=== PATIENT | male | born 1970 | race Caucasian/White ===

== ENCOUNTER 2019-04-11 06:33 | Emergency (ER) | payer SELFPAY ==
[2019-04-11 07:32] VITALS: BP 128/85; PULSE 98; TEMP 98.9; BMI 27.8
--- NOTE | 2019-04-11 08:28 | PDOC ---
History of Present Illness - General History Source: Patient Exam Limitations: Clinical Condition - History of Present Illness Initial Comments: 04/11/19 08:33 Patient with no significant past medical history and uncircumcised present with complaint of 5-day history of redness and irritation to glans of penis which is worse when he retract the foreskin. Denies penile discharge, testicular pain or swelling. Denies any other symptoms. Denies history of diabetes. Patient has not taken anything for symptoms Timing/Duration: reports: other (5 days) Location: reports: genitalia <Wade Victoria - Last Filed: 04/11/19 08:42> <Harrison Dhillon - Last Filed: 04/11/19 08:49> - General Chief Complaint: Redness To Affected Area Stated Complaint: REDNESS,GROIN Time Seen by Provider: 04/11/19 08:10 Past History - Past Medical History COPD: No - Immunization History Immunization Up to Date: Yes - Psycho Social/Smoking Cessation Hx Smoking History: Never smoked Hx Alcohol Use: No Drug/Substance Use Hx: No <Wade Victoria - Last Filed: 04/11/19 08:42> <Harrison Dhillon - Last Filed: 04/11/19 08:49> - Past Medical History Allergies/Adverse Reactions: Allergies Allergy/AdvReac Type Severity Reaction Status Date / Time No Known Allergies Allergy Verified 04/11/19 07:27 Home Medications: Ambulatory Orders Fluconazole [Diflucan] 150 mg PO ONCE #1 tablet 04/11/19 Ketoconazole 2% Cream [Nizoral 2% Cream -] 1 applic TP BID 10 Days #1 cream 09/21 Review of Systems - Review of Systems Able to Perform ROS?: Yes Is the patient limited [place] Citizen proficient: No Constitutional: No: Chills, Fever, Malaise HEENTM: No: Symptoms Reported, See HPI, Eye Pain, Blurred Vision, Tearing, Recent change in vision, Double Vision, Cataracts, Ear Pain, Ocular Prothesis, Ear Discharge, Nose Pain, Nose Congestion, Tinnitus, Nose Bleeding, Hearing Loss , Throat Pain, Throat Swelling, Mouth Pain, Dental Problems, Difficulty Swallowing, Mouth Swelling, Other Respiratory: No: Symptoms reported, See HPI, Cough, Orthopnea, Shortness of Breath, SOB with Exertion, SOB at Rest, Stridor, Wheezing, Productive cough, Hemoptysis, Other Cardiac (ROS): No: Symptoms Reported, See HPI, Chest Pain, Edema, Irregular Heart Rate, Lightheadedness, Palpitations, Syncope, Chest Tightness, Other ABD/GI: No: Symptoms Reported, Nausea, Vomiting, Abdominal cramping : Yes: Symptoms Reported, See HPI, Lesions (redness to gland of penis). No: Dysuria, Discharge, Frequency, Flank Pain, Hematuria, Urgency, Testicular Mass, Testicular Swelling, Testicular Pain Musculoskeletal: No: Symptoms Reported All Other Systems: Reviewed and Negative <Wade Victoria - Last Filed: 04/11/19 08:42> *Physical Exam - Vital Signs Last Vital Signs Temp Pulse Resp BP Pulse Ox 98.9 F 98 H 16 128/85 100 04/11/19 07:10 04/11/19 07:10 04/11/19 07:10 04/11/19 07:10 04/11/19 07:10 - Physical Exam General Appearance: Yes: Nourished, Appropriately Dressed. No: Apparent Distress HEENT: positive: Normal ENT Inspection Respiratory/Chest: negative: Respiratory Distress, Accessory Muscle Use Cardiovascular: positive: Regular Rhythm, Regular Rate Gastrointestinal/Abdominal: positive: Normal Bowel Sounds, Flat. negative: Tender, Distended, Guarding Male Genitalia: positive: other (moderate diffused erythema to gland of penis on uncircumsized male. no discharge from site. no open wounds). negative: discharge, testicular tenderness, testicular mass, epididymus tender Musculoskeletal: negative: CVA Tenderness Extremity: positive: Normal Inspection Integumentary: positive: Normal Color Neurologic: positive: Fully Oriented, Alert, Normal Response <Wade Victoria - Last Filed: 04/11/19 08:42> - Vital Signs Last Vital Signs Temp Pulse Resp BP Pulse Ox 98.9 F 98 H 16 128/85 100 04/11/19 07:10 04/11/19 07:10 04/11/19 07:10 04/11/19 07:10 04/11/19 07:10 <Harrison Dhillon - Last Filed: 04/11/19 08:49> ED Treatment Course - ADDITIONAL ORDERS Additional order review: Laboratory Results 04/11/19 08:38 POC Glucometer 105 04/11/19 08:38 POC Glucometer 105 <JacquieHarrison dubon - Last Filed: 04/11/19 08:49> Medical Decision Making - Medical Decision Making 04/11/19 08:34 Patient with no significant past medical history and uncircumcised present with complaint of 5-day history of redness and irritation to glans of penis which is worse when he retract the foreskin. Denies penile discharge, testicular pain or swelling. Denies any other symptoms. Denies history of diabetes. Patient has not taken anything for symptoms Exam was significant for diffuse erythema to glans of penis of uncircumcised male with no open wound or discharge. No testicular swelling or tenderness. Patient symptoms likely Lindsay balanitis from moisture from uncircumcised penis. Patient stable for management on Diflucan 1 tab and topical antifungal with urology follow-up. Fingerstick done to rule out diabetes 04/11/19 08:42 Fingerstick is 106. Patient stable for discharge <Wade Victoria - Last Filed: 04/11/19 08:42> - Medical Decision Making 04/11/19 08:49 I reviewed the case of the mid-level practitioner and was available for consultation while in the emergency department <Harrison Dhillon - Last Filed: 04/11/19 08:49> Discharge - Discharge Information Problems reviewed: Yes - Admission No <Wdae Victoria - Last Filed: 04/11/19 08:42> <Harrison Dhillon - Last Filed: 04/11/19 08:49> - Discharge Information Clinical Impression/Diagnosis: Candidal balanitis Condition: Stable Disposition: HOME - Additional Discharge Information Prescriptions: Fluconazole [Diflucan] 150 mg PO ONCE #1 tablet Ketoconazole 2% Cream [Nizoral 2% Cream -] 1 applic TP BID 10 Days #1 cream - Follow up/Referral Referrals: Song Moser MD [Staff Physician] - - Patient Discharge Instructions Patient Printed Discharge Instructions: DI for Balanitis Additional Instructions: Your symptoms likely caused by fungal infection. Take prescribed medication as prescribed. Follow-up referred to urology in 3 to 5 days for follow-up
== END 2019-04-11 08:50 | disposition home or self-care (01) ==
LOC: JER 06:33
DX: B37.42 Candidal balanitis (principal)
CPT/HCPCS: 82962; 99282-25

== ENCOUNTER 2022-01-10 15:02 | Emergency (ER) | payer OTHER ==
[2022-01-10 15:18] VITALS: RESP 18; TEMP 98.1; BMI 30.7
[2022-01-10 17:20] VITALS: BP 108/75; PULSE 80
[2022-01-10 17:51] LABS: BASO % 0.5 % (0-2.0); EOS % 3.7 % (0-4.5); HEMATOCRIT 38.5 % (35.4-49); HEMOGLOBIN 13.3 GM/dL (11.7-16.9); LYMPH % 31.9 % (8-40); MCHC 34.5 g/dl (32.0-35.9); MEAN CELL VOLUME 84.1 fl (80-96); MEAN PLT VOLUME 7.9 fl (7.5-11.1); MONO % 9.2 % (3.8-10.2); NEUT % 54.7 % (42.8-82.8); PLATELET COUNT 205 10^3/uL (134-434); RBC 4.58 M/mm3 (4.00-5.60); RDW 13.7 % (11.9-15.9); WHITE BLOOD COUNT 7.4 K/mm3 (4.0-10.0)
[2022-01-10 18:12] LABS: ALBUMIN 3.6 g/dl (3.4-5.0); BLOOD UREA NITROGEN 24.8 mg/dL (7-18); CALCIUM 8.7 mg/dL (8.5-10.1)
[2022-01-10 18:15] LABS: CREATININE 1.1 mg/dL (0.55-1.3)
[2022-01-10 18:17] LABS: BILIRUBIN,TOTAL 0.3 mg/dL (0.2-1); TOT PROT 6.7 g/dl (6.4-8.2)
== END 2022-01-10 18:52 | disposition home or self-care (01) ==
LOC: JER 15:02
DX: K64.9 Unspecified hemorrhoids (principal)
CPT/HCPCS: 36415; 80053; 85025; 86850; 86900; 86901; 99283-25